=== PATIENT | male | born 1985 | race Caucasian/White ===

== ENCOUNTER 2017-08-17 20:11 | Emergency (ER) | payer OTHER ==
[~2017-08-17] VITALS: Ht 180.3 cm; Wt 79.6 kg
[2017-08-17 20:16] VITALS: TEMP 37.1; Ht 180.3 cm; Wt 79.6 kg
[2017-08-17] MEDS ORDERED: ACETAMINOPHEN 325 MG TAB PO STA (20:41)
[2017-08-17] MEDS ORDERED: IBUPROFEN 600 MG TAB PO STA (20:41)
[2017-08-17] MEDS ORDERED: CHLORASEPTIC 1.4% SOLN 180 ML BTL MT STA (21:30)
[2017-08-17] MEDS ORDERED: MAGIC SWIZZLE PO STA (21:30)
[2017-08-17] MEDS ORDERED: NORCO 5/325MG HOME PACK PO STA (21:39)
--- NOTE | 2017-08-17 21:40 | EMERGENCY ROOM VISIT NOTE ---
History First contact with patient: 20:19 Chief Complaint: SORETHROAT Stated Complaint: SEVER SORE THROAT CHILLS History of Present Illness The patient is a 31 year old male who presents to the Emergency Room via private vehicle with complaints of "severe sore throat, chills". The patient states that this is the third day that he has been experiencing sore throat, decreased sleep, decreased appetite, and severe sore throat. He rates the throat pain as a 10/10. It is preventing him from sleeping. There is congestion, cough, fatigue, ear pain and runny nose. He feels slightly better with soup and ice cream. Ibuprofen provides minimal relief. There is no trouble breathing. Review of Systems A complete 6-point Review of Systems was discussed with the patient, with pertinent positives and negatives listed in the History of Present Illness. All remaining Review of Systems questions can be considered negative unless otherwise specified. Past Medical/Surgical History No pertinent Family History No pertinent Social History Smoking Status: Never Smoker Pt. is new to the area. Current/Historical Medications Scheduled Amoxicillin & Pot Clavulanate (Augmentin 875-125 mg), 1 TAB PO BID Scheduled PRN Hydrocodone/Acetaminophen 5MG/325MG ([place] 5MG/325MG), 1-2 TABLET PO Q6 PRN for Pain Physical Exam Vital Signs Date Time Temp Pulse Resp B/P (MAP) Pulse Ox O2 Delivery O2 Flow Rate FiO2 08/17/17 22:25 90 18 134/82 98 08/17/17 20:20 99 Room Air 08/17/17 20:16 37.1 93 18 148/83 99 Room Air Physical Exam VITAL SIGNS - Vital signs and nursing notes were reviewed. Stable. GENERAL - 31-year-old male appearing his stated age who is in no acute distress. Communicates well with provider and answers questions appropriately. SKIN - Without rashes. No meningeal or petechial rash. HEAD - NC/AT. EYES - PERRL with EOMI bilaterally. Sclera anicteric. EARS - No deformities of external structures noted on gross examination bilaterally. External auditory canals without discharge or otorrhea. Tympanic membranes pearly sosa without retraction or bulging. No fluid or purulent material visualized behind the TM. Handle of malleus, umbo, cone of light, pars tensa/flaccid all easily visualized. NOSE - Midline and without cyanosis. No epistaxis or purulent drainage noted. MOUTH/OROPHARYNX - Without perioral cyanosis. Buccal mucosa pink and moist and without leukoplakia. Tongue midline with equal elevation of palate bilaterally. Bilateral posterior pharyngeal erythema without unilaterality or evidence of airway compromise. No tonsillar hypertrophy. No trismus. Managing secretions well. NECK - Neck with FROM. Supple to palpation. Bilateral anterior cervical lymphadenopathy noted. No nuchal rigidity. LUNGS - Chest wall symmetric without accessory muscle use, intercostals retractions, or central cyanosis. Normal vesicular breath sounds CTA B/L. No wheezes, rales, or rhonchi appreciated. CARDIAC - RRR with S1/S2. No murmur, rubs, or gallops appreciated. Medical Decision & Procedures Laboratory Results Test 08/17/17 20:50 Monoscreen NEG (NEG) Medications Administered Medications (Trade) Dose Ordered Sig/Sunny Route Start Time Stop Time Status Last Admin Dose Admin Ibuprofen (Motrin Tab) 600 mg NOW STAT PO 08/17/17 20:41 08/17/17 20:42 DC 08/17/17 20:49 600 MG Acetaminophen (Tylenol Tab) 650 mg NOW STAT PO 08/17/17 20:41 08/17/17 20:42 DC 08/17/17 20:50 650 MG Phenol (Chloraseptic 1.4% [place]) 1 sprays NOW STAT MT 08/17/17 21:30 08/17/17 21:33 DC 08/17/17 22:04 1 SPRAYS Acetaminophen/ Hydrocodone Bitart ([place] 5/325mg Home Pack) 1 homepack UD STAT PO 08/17/17 21:39 08/17/17 21:40 DC 08/17/17 22:03 1 HOMEPACK Medical Decision Patient was seen and evaluated as above. He presents to us today with a sore throat. He has tried [id number] medication without relief. He notes it is severe to the point where he cannot sleep. He looks well on exam, and is nontoxic. No evidence of peritonsillar abscess, or retropharyngeal abscess. Monospot and rapid strep were negative. Culture pending. Because of his presentation, I will like to provide an Augmentin prescription. In addition, the patient verbalizes concern for managing his pain at home secondary to the pain. After discussing benefit versus risk, decision was made to provide him with a small prescription for [place]. No red flags in the pets of any drug monitoring system. It was made very clear to the patient that this is only for severe pain not alleviated by ibuprofen. While here he was given ibuprofen, Tylenol, Magic swizzle and phenol spray to numb the back of the throat. He is to follow with family doctor or return with worsening. He was educated upon management, educated upon worrisome symptoms in which to return, had questions in spite of discharge, and was discharged home in good condition. In the evaluation and treatment of this patient the following differential diagnosis entertained: Viral pharyngitis, streptococcal pharyngitis, retropharyngeal abscess, mononucleosis, among others. Impression Primary Impression: Sore throat Departure Information Dispostion Home / Self-Care Condition GOOD Prescriptions Hydrocodone/Acetaminophen 5MG/325MG ([place] 5MG/325MG) Tab 1-2 TABLET PO Q6 Y for Pain, #10 TAB For Initial Treatment Prov: Gavin Benitez PA-C 08/17/17 Amoxicillin & Pot Clavulanate (Augmentin 875-125 mg) 1 Tab Tab 1 TAB PO BID for 10 Days, #20 TAB Prov: Gavin Benitez PA-C 08/17/17 Referrals No Doctor, Assigned (PCP) Patient Instructions [facility] Additional Instructions You were seen in the emergency department for your sore throat. The results of your rapid strep screen were found to be negative and mono negative. You will be contacted in 48-72 hrs if the results of your culture are found to be positive and any change in antibiotics is necessary. You were prescribed Augmentin to be taken every 12 hours. This is an antibiotic. All antibiotics have the potential to cause diarrhea. Stop this medication and contact a medical provider if you were to develop any significant adverse side effects including: wheezing, shortness of breath, passing out, vomiting, or a diffuse rash. Always take antibiotics as directed and COMPLETE the ENTIRE course regardless of the improvement of your symptoms. NORCO only for severe pain not controlled by ibuprofen. For pain and fever control, you can use the following [id number] medicines (if >12 yo): - Regular strength (325mg/tab) Tylenol (acetaminophen) 2 tabs every 4-6 hours as needed. Do not exceed 12 tablets in a 24 hour period. Avoid taking more than 3 grams (3000 mg) of Tylenol per day. This includes any other sources of acetaminophen you may take on a regular basis. PLEASE DO NOT TAKE WITH THE NORCO - Regular strength (200 mg/tab) Advil (ibuprofen) 1-2 tabs every 4-6 hours as needed. Do not exceed a dose of 3200 mg per day. - For best results, alternate dosing of Tylenol and Advil. In addition to your prescribed medications, you can also use the following home remedies: - Warm salt-water gargles 3 times per day can soothe your throat and help to fight infection. - Warm tea with honey can soothe your throat. Return to the emergency department if your symptoms persist or worsen over the next 2-3 days despite treatment course outlined above. Return to the emergency department if you develop the following symptoms of: inability to swallow solids , liquids, or drool; excessive wheezing or inability to catch your breath; or intractable fever or pain. Follow up with your primary care provider in 2-3 days from today's emergency department visit.
[2017-08-17] MEDS ORDERED: AMOX875T PO (21:43)
[2017-08-17] MEDS ORDERED: HYDR-5688 PO (21:43)
[2017-08-17] MEDS ORDERED: ALUMINUM/MAGNESIUM SUSP 30 ML UDC ONE (21:53)
[2017-08-17] MEDS ORDERED: LIDOCAINE HCL 2% VISC SOLN 20 ML UDC ONE (21:53)
[2017-08-17] MEDS ORDERED: DiphenhydrAMINE HCL 50 MG/ML VIAL ONE (21:56)
[2017-08-17 22:25] VITALS: BP 134/82; PULSE 90; O2SAT 98
== END 2017-08-17 22:28 | disposition home or self-care (01) ==
LOC: C.EDB 20:15
DX: R07.0 Pain in throat (principal); R68.83 Chills (without fever)